=== PATIENT | female | born 2000 | race Caucasian/White ===

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

== ENCOUNTER 2022-01-28 08:03 | Day surgery (SDC) | payer OTHER ==
[~2022-01-28] VITALS: Ht 165.1 cm; Wt 54.7 kg
[2022-01-28] MEDS ORDERED: FLUO10 PO (08:29)
--- NOTE | 2022-01-28 09:37 | NUR ---
01/28/22 0937 Coleen Olvera 27 MLS OF ROPIVACAINE 0.5% 1:200,000 [address]JECTED [address] O[address]ITE [address] ENRIQUE.
== END 2022-01-28 11:18 | disposition home or self-care (01) ==
LOC: ORSCSDS 08:03
PROVIDERS: Podiatrist Foot & Ankle Surgery
PROC: 0L8P0ZZ Division of Left Lower Leg Tendon, Open Approach (ICD-10-PCS; principal; 2022-01-28 09:15)
DX: M24.572 Contracture, left ankle (principal); F41.8 Other specified anxiety disorders; Z79.899 Other long term (current) drug therapy
CPT/HCPCS: A9270; J0171; J0690; J2250; J2405; J2704; J2795; J3010; J7120

== ENCOUNTER 2022-06-10 06:02 | Day surgery (SDC) | payer OTHER ==
[~2022-06-10] VITALS: Ht 162.6 cm; Wt 57.1 kg
[~2022-06-10 06:02] MED LIST: FLUO10 PO
--- NOTE | 2022-06-10 07:56 | NUR ---
06/10/22 0755 Jessie Hansen PT PRONE WITH CHEST ROLL UNDER CHEST, ARM SECRUED ON ARMBOARDS, GELPAD ON BED PILLOW UNDER KNEES AND LOWER LEGS, HEAD IS RESTING ON FOAM HEAD REST.
[2022-06-10 09:10] VITALS: BP 122/66
--- NOTE | 2022-06-10 09:28 | NUR ---
06/10/22 0928 Sarthak Christensen RASH ON NECK, PT STATES IS A SKIN CONDITION AND IS NOT RING WORMS IT WAS TESTED.
== END 2022-06-10 09:28 | disposition home or self-care (01) ==
LOC: ORSCSDS 06:02
PROVIDERS: Podiatrist Foot & Ankle Surgery
PROC: 0L8N0ZZ Division of Right Lower Leg Tendon, Open Approach (ICD-10-PCS; principal; 2022-06-10 07:30)
DX: M24.574 Contracture, right foot (principal); M76.61 Achilles tendinitis, right leg; F41.8 Other specified anxiety disorders; Z79.899 Other long term (current) drug therapy
CPT/HCPCS: A9270; J0171; J0690; J1100; J2250; J2370; J2405; J2704; J2795; J3010; J7120